=== PATIENT | male | born 1950 | race Two or more races ===

== ENCOUNTER 2024-04-08 11:16 | Outpatient (CLI) | payer OTHER | END 2024-04-08 11:22 | disposition home or self-care (01) | LOC: RAD 11:16 | DX: I11.9 Hypertensive heart disease without heart failure (principal) ==

== ENCOUNTER 2024-04-19 11:04 | Outpatient (CLI) | payer OTHER | END 2024-04-19 11:08 | disposition home or self-care (01) | LOC: NUCLEAR 11:04 | DX: I65.23 Occlusion and stenosis of bilateral carotid arteries (principal) ==